=== PATIENT | male | born 1955 | race African-American/Black ===

== ENCOUNTER 2024-01-01 17:12 | Inpatient (IN) | payer MEDICARE ==
[~2024-01-01] VITALS: Ht 195.6 cm; Wt 109.3 kg
[2024-01-01] MEDS ORDERED: methylPREDNISolone SOD SUCC 125 MG/2ML VIAL ONE (17:46)
[2024-01-01] MEDS: methylPREDNISolone SOD SUCC 125 MG/2ML VIAL IV ONE (17:51)
[2024-01-01 18:09] LABS: ABG BASE EXCESS 1.9 mmol/L (-2.0-3.0); ABG PCO2 38.3 mmHg (35.0-48.0); ABG PH 7.447 (7.350-7.450); ABG PO2 74.9 mmHg (83.0-108.0); ABG TOTAL HEMOGLOBIN 14.1 G/dL (13.5-17.5); COHb 2.3 % (0.5-1.5); MetHb 0.2 % (0.0-1.5); O2Hb 92.6 % (94.0-97.0); SITE, ABG Left Radial; VENT MODE, BG SIMPLE MSK
[2024-01-01 18:13] LABS: BASOPHILS # (AUTO) 0.1 K/uL (0.0-0.2); BASOPHILS % (AUTO) 0.9 % (0.0-2.0); EOSINOPHILS # (AUTO) 0.1 K/uL (0.0-0.7); EOSINOPHILS % (AUTO) 0.8 % (0.0-6.0); HEMATOCRIT 41 % (39-51); HEMOGLOBIN 13.3 g/dL (13.5-17.5); LYMPHOCYTES # (AUTO) 1.4 K/uL (0.8-4.8); LYMPHOCYTES % (AUTO) 18.6 % (20.0-44.0); MEAN CORPUSCULAR HEMOGLOBIN 30 PG (26.0-33.0); MEAN CORPUSCULAR HGB CONC 33 g/dl (31.0-36.0); MEAN CORPUSCULAR VOLUME 92 fL (80-96); MONOCYTES # (AUTO) 0.4 K/uL (0.1-1.30); MONOCYTES % (AUTO) 5.2 % (2.0-12.0); NEUTROPHILS # (AUTO) 5.8 K/uL (1.8-8.9); NEUTROPHILS % (AUTO) 74.5 % (43.0-81.0); PLATELET COUNT (AUTO) 307 K/uL (150-450); RED BLOOD CELL COUNT(AUTO) 4.43 MIL/uL (4.5-6.0); RED CELL DISTRIBUTION WIDTH 14.4 % (11.5-15.0); WHITE BLOOD COUNT (AUTO) 7.7 K/uL (4.3-11.0)
[2024-01-01 18:25] LABS: CALCIUM, SERUM 8.8 mg/dL (8.5-10.1); CARBON DIOXIDE 27 mmol/L (21-32); CHLORIDE 103 mmol/L (98-107); CREATININE 1.1 mg/dL (0.6-1.3); GLUCOSE 216 mg/dL (74-106); POTASSIUM 3.9 mmol/L (3.5-5.1); SODIUM SERUM 135 mmol/L (136-145); UREA NITROGEN, BLOOD 8 mg/dL (7-18)
[2024-01-01] MEDS ORDERED: FAMO20TA80 PO (18:29)
[2024-01-01] MEDS ORDERED: CETI-90 PO (18:29)
[2024-01-01] MEDS ORDERED: GLIM2TAB31 PO (18:29)
[2024-01-01 18:36] LABS: NT-PRO BNP 5243 pg/mL (0-125)
[2024-01-01 18:37] LABS: PROTHROMBIN TIME 10.6 SECS (9.2-11.1)
[2024-01-01 18:38] LABS: INR 1.03 (0.91-1.10); PARTIAL THROMBOPLASTIN TIME 27.2 SEC (24.3-34.3)
[2024-01-01] MEDS: FUROSEMIDE 40 MG/4 ML VIAL IV ONE (18:48)
[2024-01-01] MEDS ORDERED: FUROSEMIDE 40 MG/4 ML VIAL ONE (18:48)
[2024-01-01] MEDS ORDERED: MAGNESIUM HYDROXIDE 30 ML UDC PO PRN (20:00)
[2024-01-01] MEDS ORDERED: Z GUARD REMEDY 4 OZ OINT TP PRN (20:00)
[2024-01-01] MEDS ORDERED: MAG HYDROX/AL HYDROX/SIMETH 30 ML UDC PO PRN (20:00)
[2024-01-01] MEDS ORDERED: ALBUTEROL FS 2.5 MG/3 ML VIAL.NEB NEB PRN (20:00)
[2024-01-01] MEDS ORDERED: ONDANSETRON HCL/PF 4 MG/2 ML VIAL IVP PRN (20:00)
[2024-01-01] MEDS: ENOXAPARIN SODIUM 40 MG/0.4 ML DISP.SYRIN SQ SCH (21:59)
[2024-01-01] MEDS ORDERED: ZOLPIDEM TARTRATE 5 MG TABLET PO PRN (22:00)
[2024-01-02] VITALS: BP 148/95; TEMP 98.2; O2SAT 96
[2024-01-02 04:00] VITALS: BP 148/97; TEMP 98; O2SAT 95
[2024-01-02 06:45] LABS: BASOPHILS % (AUTO) 0.1 % (0.0-2.0); HEMATOCRIT 40 % (39-51); HEMOGLOBIN 13.4 g/dL (13.5-17.5); LYMPHOCYTES # (AUTO) 0.8 K/uL (0.8-4.8); LYMPHOCYTES % (AUTO) 10.5 % (20.0-44.0); MEAN CORPUSCULAR HEMOGLOBIN 30 PG (26.0-33.0); MEAN CORPUSCULAR HGB CONC 34 g/dl (31.0-36.0); MEAN CORPUSCULAR VOLUME 90 fL (80-96); MONOCYTES # (AUTO) 0.1 K/uL (0.1-1.30); MONOCYTES % (AUTO) 0.8 % (2.0-12.0); NEUTROPHILS # (AUTO) 7.1 K/uL (1.8-8.9); NEUTROPHILS % (AUTO) 88.6 % (43.0-81.0); PLATELET COUNT (AUTO) 320 K/uL (150-450); RED BLOOD CELL COUNT(AUTO) 4.43 MIL/uL (4.5-6.0); RED CELL DISTRIBUTION WIDTH 14.5 % (11.5-15.0); WHITE BLOOD COUNT (AUTO) 8.1 K/uL (4.3-11.0)
[2024-01-02 06:50] LABS: ALBUMIN 2.7 g/dL (3.4-5.0); BILIRUBIN,DIRECT 0.1 mg/dL (0.0-0.2); BILIRUBIN,TOTAL 0.5 mg/dL (0.2-1.0); CALCIUM, SERUM 8.9 mg/dL (8.5-10.1); CREATININE 1.3 mg/dL (0.6-1.3); PHOSPHORUS 4.2 mg/dL (2.5-4.9); POTASSIUM 4.3 mmol/L (3.5-5.1); TOTAL PROTEIN, SERUM 6.8 g/dL (6.4-8.2)
[2024-01-02] MEDS: PANTOPRAZOLE 40 MG TABLET.DR PO SCH (07:41)
[2024-01-02 08:00] VITALS: BP 147/108; TEMP 98.5; O2SAT 95
[2024-01-02] MEDS: FUROSEMIDE 20 MG/2 ML VIAL IV SCH ×2 (09:13→16:28)
[2024-01-02] MEDS: NITROGLYCERIN 30 GM TUBE TP PRN (11:32)
[2024-01-02] MEDS: ACETAMINOPHEN 325 MG TABLET PO PRN (11:38)
[2024-01-02] MEDS: ASPIRIN 81 MG TAB.CHEW PO STA (11:57)
[2024-01-02 12:00] VITALS: BP 150/104; TEMP 98.5; O2SAT 92
[2024-01-02] MEDS: NITROGLYCERIN 0.4 MG/TAB BOTTLE SL PRN (12:31)
[2024-01-02] MEDS: ENOXAPARIN SODIUM 100 MG/ML DISP.SYRIN SQ SCH (12:34)
[2024-01-02 16:00] VITALS: BP 117/76; TEMP 98.1; O2SAT 97
[2024-01-02 20:00] VITALS: BP 105/67; TEMP 98.1; O2SAT 98
[2024-01-03] VITALS: BP 142/86; TEMP 97.9; O2SAT 99
[2024-01-03 04:00] VITALS: BP 129/86; TEMP 98.4; O2SAT 100
[2024-01-03 06:58] LABS: BASOPHILS # (AUTO) 0.1 K/uL (0.0-0.2); BASOPHILS % (AUTO) 0.6 % (0.0-2.0); EOSINOPHILS # (AUTO) 0.2 K/uL (0.0-0.7); EOSINOPHILS % (AUTO) 1.6 % (0.0-6.0); HEMATOCRIT 42 % (39-51); HEMOGLOBIN 13.5 g/dL (13.5-17.5); LYMPHOCYTES # (AUTO) 2.4 K/uL (0.8-4.8); LYMPHOCYTES % (AUTO) 20.6 % (20.0-44.0); MEAN CORPUSCULAR HEMOGLOBIN 29 PG (26.0-33.0); MEAN CORPUSCULAR HGB CONC 32 g/dl (31.0-36.0); MEAN CORPUSCULAR VOLUME 91 fL (80-96); MONOCYTES # (AUTO) 0.6 K/uL (0.1-1.30); MONOCYTES % (AUTO) 5.4 % (2.0-12.0); NEUTROPHILS # (AUTO) 8.3 K/uL (1.8-8.9); NEUTROPHILS % (AUTO) 71.8 % (43.0-81.0); PLATELET COUNT (AUTO) 336 K/uL (150-450); RED BLOOD CELL COUNT(AUTO) 4.68 MIL/uL (4.5-6.0); RED CELL DISTRIBUTION WIDTH 14.9 % (11.5-15.0); WHITE BLOOD COUNT (AUTO) 11.6 K/uL (4.3-11.0)
[2024-01-03 07:32] LABS: CALCIUM, SERUM 9.3 mg/dL (8.5-10.1); CREATININE 1.4 mg/dL (0.6-1.3); POTASSIUM 4.1 mmol/L (3.5-5.1)
[2024-01-03 08:00] VITALS: BP 129/98; TEMP 97.5; O2SAT 97
[2024-01-03] MEDS: ASPIRIN 81 MG TAB.CHEW PO SCH (08:15)
[2024-01-03 12:00] VITALS: BP 123/89; TEMP 97.9; O2SAT 97
[2024-01-03 16:00] VITALS: BP 120/79; TEMP 98.1; O2SAT 98
[2024-01-03 16:04] LABS: APPEARANCE,URINE CLEAR (CLEAR); BILIRUBIN,URINE NEGATIVE (NEGATIVE); BLOOD, URINE NEGATIVE Ery/uL (NEGATIVE); COLOR,URINE OTHER (YELLOW); KETONES,URINE NEGATIVE (NEGATIVE); LEUKOCYTE ESTERASE ,URINE NEGATIVE (NEGATIVE); NITRITE, URINE NEGATIVE (NEGATIVE); PROTEIN,URINE NEGATIVE (NEGATIVE); UGLUCOSE NEGATIVE (NEGATIVE); UROBILINOGEN,URINE 0.2 EU/dL (0.2)
[2024-01-03 16:12] LABS: CREATININE, URINE 20.6 MG/DL (30.0-125.0); URINE SODIUM, RANDOM 64 mmol/l (40-220)
[2024-01-03 16:26] LABS: URINE TOTAL PROTEIN < 6.0 mg/dL (0-11.9)
[2024-01-03 17:03] LABS: EOSINOPHIL,URINE None Seen
[2024-01-03 20:00] VITALS: BP 124/84; TEMP 98.4; O2SAT 97
[2024-01-04] VITALS: BP 130/82; TEMP 98.2; O2SAT 98
[2024-01-04 04:00] VITALS: BP 130/94; TEMP 97.5; O2SAT 99
[2024-01-04 08:00] VITALS: BP 138/93; TEMP 97.5; O2SAT 95
[2024-01-04] MEDS ORDERED: FAMOTIDINE (20 MG) 20 MG TABLET PO SCH (09:00)
[2024-01-04 09:25] LABS: BASOPHILS % (AUTO) 0.3 % (0.0-2.0); EOSINOPHILS # (AUTO) 0.3 K/uL (0.0-0.7); EOSINOPHILS % (AUTO) 3.3 % (0.0-6.0); HEMATOCRIT 41 % (39-51); HEMOGLOBIN 13.4 g/dL (13.5-17.5); LYMPHOCYTES # (AUTO) 2.5 K/uL (0.8-4.8); LYMPHOCYTES % (AUTO) 28.2 % (20.0-44.0); MEAN CORPUSCULAR HEMOGLOBIN 30 PG (26.0-33.0); MEAN CORPUSCULAR HGB CONC 33 g/dl (31.0-36.0); MEAN CORPUSCULAR VOLUME 90 fL (80-96); MONOCYTES # (AUTO) 0.6 K/uL (0.1-1.30); MONOCYTES % (AUTO) 7.2 % (2.0-12.0); NEUTROPHILS # (AUTO) 5.4 K/uL (1.8-8.9); PLATELET COUNT (AUTO) 302 K/uL (150-450); RED BLOOD CELL COUNT(AUTO) 4.52 MIL/uL (4.5-6.0); RED CELL DISTRIBUTION WIDTH 14.7 % (11.5-15.0); WHITE BLOOD COUNT (AUTO) 8.9 K/uL (4.3-11.0)
[2024-01-04 09:46] LABS: CALCIUM, SERUM 9.2 mg/dL (8.5-10.1); CREATININE 1.2 mg/dL (0.6-1.3); POTASSIUM 3.8 mmol/L (3.5-5.1)
[2024-01-04 12:00] VITALS: BP 124/81; TEMP 98.1; O2SAT 95
== END 2024-01-04 16:00 | disposition left against medical advice (07) | DRG 280 ==
LOC: ER 17:15 → TELE-TD 19:04 → TELE1 01-04 14:25
PROVIDERS: ADMIT Nurse Practitioner Family; ATTEND Nurse Practitioner Acute Care
DX: I11.0 Hypertensive heart disease with heart failure (principal); G93.41 Metabolic encephalopathy; I21.A1 Myocardial infarction type 2; I50.33 Acute on chronic diastolic (congestive) heart failure; J96.01 Acute respiratory failure with hypoxia; E87.1 Hypo-osmolality and hyponatremia; N17.9 Acute kidney failure, unspecified; J90 Pleural effusion, not elsewhere classified; K21.9 Gastro-esophageal reflux disease without esophagitis; D64.9 Anemia, unspecified; E11.9 Type 2 diabetes mellitus without complications; E66.3 Overweight; E78.5 Hyperlipidemia, unspecified; I48.91 Unspecified atrial fibrillation; Z20.822 Contact with and (suspected) exposure to COVID-19; M89.8X9 Other specified disorders of bone, unspecified site; Z79.84 Long term (current) use of oral hypoglycemic drugs; Z68.28 Body mass index [BMI] 28.0-28.9, adult; I25.10 Atherosclerotic heart disease of native coronary artery without angina pectoris; Z87.891 Personal history of nicotine dependence
CPT/HCPCS: 36415; 70450-TC; 71045-TC; 80048-TC; 80061-TC; 80076-TC; 82570-TC; 83605-TC; 83735-TC; 83880; 84100-TC; 84300-TC; 84484-TC; 85025-TC; 85730-TC; 87040-TC; 93307-TC; 94799-TC; G0378; J1650; J1940; J2919

== ENCOUNTER 2024-01-09 21:10 | Inpatient (IN) | payer MEDICARE ==
[~2024-01-09] VITALS: Ht 195.6 cm; Wt 97.5 kg
[~2024-01-09 21:10] MED LIST: CETI-90 PO; FAMO20TA80 PO; GLIM2TAB31 PO
[2024-01-09] MEDS ORDERED: NITROGLYCERIN 0.4 MG/TAB BOTTLE ONE (21:23)
[2024-01-09 21:26] VITALS: O2SAT 100
[2024-01-09] MEDS: ALBUTEROL FS 2.5 MG/3 ML VIAL.NEB NEB ONE (21:26)
[2024-01-09] MEDS ORDERED: ALBUTEROL FS 2.5 MG/3 ML VIAL.NEB ONE (21:28)
[2024-01-09] MEDS: NITROGLYCERIN 0.4 MG/TAB BOTTLE SL ONE (21:29)
[2024-01-09 21:46] VITALS: O2SAT 98
[2024-01-09] MEDS ORDERED: methylPREDNISolone SOD SUCC 125 MG/2ML VIAL ONE (21:57)
[2024-01-09] MEDS: methylPREDNISolone SOD SUCC 125 MG/2ML VIAL IV ONE (21:59)
[2024-01-09 22:14] LABS: BASOPHILS % (AUTO) 0.2 % (0.0-2.0); EOSINOPHILS # (AUTO) 0.1 K/uL (0.0-0.7); HEMATOCRIT 40 % (39-51); HEMOGLOBIN 13.1 g/dL (13.5-17.5); LYMPHOCYTES # (AUTO) 1.3 K/uL (0.8-4.8); LYMPHOCYTES % (AUTO) 18.8 % (20.0-44.0); MEAN CORPUSCULAR HEMOGLOBIN 30 PG (26.0-33.0); MEAN CORPUSCULAR HGB CONC 33 g/dl (31.0-36.0); MEAN CORPUSCULAR VOLUME 91 fL (80-96); MONOCYTES # (AUTO) 0.3 K/uL (0.1-1.30); MONOCYTES % (AUTO) 4.4 % (2.0-12.0); NEUTROPHILS # (AUTO) 5.1 K/uL (1.8-8.9); NEUTROPHILS % (AUTO) 75.6 % (43.0-81.0); PLATELET COUNT (AUTO) 323 K/uL (150-450); RED BLOOD CELL COUNT(AUTO) 4.34 MIL/uL (4.5-6.0); RED CELL DISTRIBUTION WIDTH 14.3 % (11.5-15.0); WHITE BLOOD COUNT (AUTO) 6.8 K/uL (4.3-11.0)
[2024-01-09 22:23] LABS: CARBON DIOXIDE 26 mmol/L (21-32); CHLORIDE 103 mmol/L (98-107); CREATININE 1.3 mg/dL (0.6-1.3); GLUCOSE 207 mg/dL (74-106); POTASSIUM 3.7 mmol/L (3.5-5.1); SODIUM SERUM 135 mmol/L (136-145); UREA NITROGEN, BLOOD 10 mg/dL (7-18)
[2024-01-09 22:32] LABS: LACTIC ACID 1.2 mmol/L (0.4-2.0)
[2024-01-09 22:34] LABS: INR 1.03 (0.91-1.10); PARTIAL THROMBOPLASTIN TIME 26.7 SEC (24.3-34.3); PROTHROMBIN TIME 10.6 SECS (9.2-11.1)
[2024-01-09 22:36] LABS: ALANINE AMINOTRANSFERASE 25 U/L (12-78); ALBUMIN 2.9 g/dL (3.4-5.0); ALKALINE PHOSPHATASE 84 U/L (46-116); ASPARTATE AMINOTRANSFERASE 18 U/L (15-37); BILIRUBIN,DIRECT 0.1 mg/dL (0.0-0.2); BILIRUBIN,TOTAL 0.4 mg/dL (0.2-1.0); NT-PRO BNP 4877 pg/mL (0-125); TOTAL PROTEIN, SERUM 6.8 g/dL (6.4-8.2)
[2024-01-09] MEDS ORDERED: ASPIRIN 325 MG TABLET ONE (22:57)
[2024-01-09] MEDS: ASPIRIN 325 MG TABLET PO ONE (22:58)
[2024-01-10] VITALS (10 sets, daily range): BP systolic 131–151; BP diastolic 92–97; TEMP 97.5–98.1; O2SAT 92–98
[2024-01-10] MEDS ORDERED: DEXTROSE 50%-WATER 50 ML DISP.SYRIN IV PRN (00:30)
[2024-01-10] MEDS ORDERED: Z GUARD REMEDY 4 OZ OINT TP PRN (00:30)
[2024-01-10] MEDS ORDERED: ALBUTEROL FS 2.5 MG/0.5 ML VIAL.NEB NEB PRN (00:30)
[2024-01-10] MEDS ORDERED: MAGNESIUM HYDROXIDE 30 ML UDC PO PRN (00:30)
[2024-01-10] MEDS ORDERED: MAG HYDROX/AL HYDROX/SIMETH 30 ML UDC PO PRN (00:30)
[2024-01-10] MEDS ORDERED: ONDANSETRON HCL/PF 4 MG/2 ML VIAL IVP PRN (00:30)
[2024-01-10] MEDS ORDERED: ENOXAPARIN SODIUM 40 MG/0.4 ML DISP.SYRIN SQ ONE (02:44)
[2024-01-10] MEDS: BLOOD SUGAR DIAGNOSTIC 1 EACH STRIP IN SCH (07:55)
[2024-01-10] MEDS: INSULIN REGULAR, HUMAN 100 UNIT/ML 3 ML VIAL SQ PRN (07:56)
[2024-01-10] MEDS: cetrizine 10 MG TABLET PO SCH (09:07)
[2024-01-10] MEDS: ASPIRIN 81 MG TAB.CHEW PO SCH (09:07)
[2024-01-10] MEDS: FUROSEMIDE 40 MG/4 ML VIAL IV SCH (09:08)
[2024-01-10] MEDS: methylPREDNISolone SOD SUCC 125 MG/2ML VIAL IV SCH (12:57)
[2024-01-10] MEDS: IPRATROPIUM NEB FS 0.5 MG/2.5 ML AMPUL.NEB NEB SCH (13:30)
[2024-01-10] MEDS: ALBUTEROL FS 2.5 MG/0.5 ML VIAL.NEB NEB SCH (13:30)
[2024-01-10] MEDS: ENOXAPARIN SODIUM 40 MG/0.4 ML DISP.SYRIN SQ SCH (21:43)
[2024-01-11] VITALS (14 sets, daily range): BP systolic 133–150; BP diastolic 82–104; TEMP 97.5–98.1; O2SAT 92–100
[2024-01-11 06:30] LABS: BASOPHILS # (AUTO) 0.1 K/uL (0.0-0.2); BASOPHILS % (AUTO) 0.6 % (0.0-2.0); HEMATOCRIT 41 % (39-51); HEMOGLOBIN 13.5 g/dL (13.5-17.5); LYMPHOCYTES # (AUTO) 1.6 K/uL (0.8-4.8); LYMPHOCYTES % (AUTO) 16.6 % (20.0-44.0); MEAN CORPUSCULAR HEMOGLOBIN 30 PG (26.0-33.0); MEAN CORPUSCULAR HGB CONC 33 g/dl (31.0-36.0); MEAN CORPUSCULAR VOLUME 91 fL (80-96); MONOCYTES # (AUTO) 0.5 K/uL (0.1-1.30); MONOCYTES % (AUTO) 5.4 % (2.0-12.0); NEUTROPHILS # (AUTO) 7.7 K/uL (1.8-8.9); NEUTROPHILS % (AUTO) 77.4 % (43.0-81.0); PLATELET COUNT (AUTO) 297 K/uL (150-450); RED BLOOD CELL COUNT(AUTO) 4.53 MIL/uL (4.5-6.0); RED CELL DISTRIBUTION WIDTH 14.7 % (11.5-15.0); WHITE BLOOD COUNT (AUTO) 9.9 K/uL (4.3-11.0)
[2024-01-11 07:04] LABS: CALCIUM, SERUM 9.7 mg/dL (8.5-10.1); CREATININE 1.3 mg/dL (0.6-1.3); PHOSPHORUS 4.4 mg/dL (2.5-4.9); POTASSIUM 4.2 mmol/L (3.5-5.1)
[2024-01-11] MEDS: POTASSIUM CHLORIDE 20 MEQ TAB.PRT.SR PO SCH (11:22)
[2024-01-11] MEDS: FUROSEMIDE 40 MG/4 ML VIAL IV SCH (11:22)
[2024-01-11] MEDS: NICOTINE PATCH (21MG) 21 MG PATCH.TD24 TD SCH (11:22)
[2024-01-12] VITALS (13 sets, daily range): BP systolic 122–148; BP diastolic 65–92; TEMP 97.4–98.3; O2SAT 93–100
[2024-01-12 07:51] LABS: BASOPHILS % (AUTO) 0.4 % (0.0-2.0); EOSINOPHILS % (AUTO) 0.3 % (0.0-6.0); HEMATOCRIT 41 % (39-51); HEMOGLOBIN 13.2 g/dL (13.5-17.5); LYMPHOCYTES # (AUTO) 2.1 K/uL (0.8-4.8); LYMPHOCYTES % (AUTO) 19.6 % (20.0-44.0); MEAN CORPUSCULAR HEMOGLOBIN 29 PG (26.0-33.0); MEAN CORPUSCULAR HGB CONC 32 g/dl (31.0-36.0); MEAN CORPUSCULAR VOLUME 91 fL (80-96); MONOCYTES # (AUTO) 0.6 K/uL (0.1-1.30); MONOCYTES % (AUTO) 5.5 % (2.0-12.0); NEUTROPHILS % (AUTO) 74.2 % (43.0-81.0); PLATELET COUNT (AUTO) 299 K/uL (150-450); RED BLOOD CELL COUNT(AUTO) 4.53 MIL/uL (4.5-6.0); RED CELL DISTRIBUTION WIDTH 14.7 % (11.5-15.0); WHITE BLOOD COUNT (AUTO) 10.8 K/uL (4.3-11.0)
[2024-01-12 08:27] LABS: ALBUMIN 2.9 g/dL (3.4-5.0); BILIRUBIN,TOTAL 0.3 mg/dL (0.2-1.0); CALCIUM, SERUM 9.2 mg/dL (8.5-10.1); CREATININE 1.3 mg/dL (0.6-1.3); MAGNESIUM 2.4 mg/dL (1.8-2.4); PHOSPHORUS 4.1 mg/dL (2.5-4.9); TOTAL PROTEIN, SERUM 6.8 g/dL (6.4-8.2)
[2024-01-13] VITALS (16 sets, daily range): BP systolic 125–158; BP diastolic 85–102; TEMP 97.4–98.4; O2SAT 92–99
[2024-01-13] MEDS: FUROSEMIDE 40 MG/4 ML VIAL IV SCH (08:40)
[2024-01-13] MEDS: methylPREDNISolone SOD SUCC 125 MG/2ML VIAL IV SCH (08:41)
[2024-01-13] MEDS: POTASSIUM CHLORIDE 20 MEQ TAB.PRT.SR PO SCH (08:43)
[2024-01-14] VITALS (16 sets, daily range): BP systolic 131–166; BP diastolic 84–98; TEMP 97.9–98.4; O2SAT 97–100
[2024-01-14 06:48] LABS: BASOPHILS % (AUTO) 0.5 % (0.0-2.0); EOSINOPHILS # (AUTO) 0.1 K/uL (0.0-0.7); EOSINOPHILS % (AUTO) 1.2 % (0.0-6.0); HEMATOCRIT 42 % (39-51); HEMOGLOBIN 13.6 g/dL (13.5-17.5); LYMPHOCYTES # (AUTO) 2.8 K/uL (0.8-4.8); LYMPHOCYTES % (AUTO) 28.8 % (20.0-44.0); MEAN CORPUSCULAR HEMOGLOBIN 30 PG (26.0-33.0); MEAN CORPUSCULAR HGB CONC 33 g/dl (31.0-36.0); MEAN CORPUSCULAR VOLUME 92 fL (80-96); MONOCYTES # (AUTO) 0.7 K/uL (0.1-1.30); NEUTROPHILS # (AUTO) 6.2 K/uL (1.8-8.9); NEUTROPHILS % (AUTO) 62.5 % (43.0-81.0); PLATELET COUNT (AUTO) 274 K/uL (150-450); RED BLOOD CELL COUNT(AUTO) 4.55 MIL/uL (4.5-6.0); RED CELL DISTRIBUTION WIDTH 14.4 % (11.5-15.0); WHITE BLOOD COUNT (AUTO) 9.9 K/uL (4.3-11.0)
[2024-01-14 07:38] LABS: ALBUMIN 2.6 g/dL (3.4-5.0); BILIRUBIN,TOTAL 0.3 mg/dL (0.2-1.0); CALCIUM, SERUM 8.6 mg/dL (8.5-10.1); CREATININE 1.2 mg/dL (0.6-1.3); MAGNESIUM 2.3 mg/dL (1.8-2.4); POTASSIUM 3.8 mmol/L (3.5-5.1); TOTAL PROTEIN, SERUM 6.3 g/dL (6.4-8.2)
[2024-01-14] MEDS: ACETAMINOPHEN 325 MG TABLET PO PRN (17:21)
[2024-01-14] MEDS: INSULIN GLARGINE, 100 UNIT/ML CARTRIDGE SQ SCH (21:50)
[2024-01-15] VITALS (12 sets, daily range): BP systolic 97–136; BP diastolic 74–89; TEMP 97.8–98.4; O2SAT 91–100
[2024-01-15 08:36] LABS: BASOPHILS % (AUTO) 0.3 % (0.0-2.0); EOSINOPHILS # (AUTO) 0.1 K/uL (0.0-0.7); HEMATOCRIT 45 % (39-51); HEMOGLOBIN 14.4 g/dL (13.5-17.5); LYMPHOCYTES # (AUTO) 3.7 K/uL (0.8-4.8); MEAN CORPUSCULAR HEMOGLOBIN 29 PG (26.0-33.0); MEAN CORPUSCULAR HGB CONC 32 g/dl (31.0-36.0); MEAN CORPUSCULAR VOLUME 91 fL (80-96); MONOCYTES # (AUTO) 0.6 K/uL (0.1-1.30); MONOCYTES % (AUTO) 5.7 % (2.0-12.0); NEUTROPHILS # (AUTO) 6.9 K/uL (1.8-8.9); PLATELET COUNT (AUTO) 258 K/uL (150-450); RED CELL DISTRIBUTION WIDTH 14.9 % (11.5-15.0); WHITE BLOOD COUNT (AUTO) 11.4 K/uL (4.3-11.0)
[2024-01-15 08:53] LABS: CALCIUM, SERUM 9.4 mg/dL (8.5-10.1); CREATININE 1.1 mg/dL (0.6-1.3); MAGNESIUM 2.3 mg/dL (1.8-2.4); PHOSPHORUS 3.6 mg/dL (2.5-4.9); POTASSIUM 3.6 mmol/L (3.5-5.1)
[2024-01-16] VITALS (12 sets, daily range): BP systolic 118–151; BP diastolic 67–98; TEMP 97.5–98.2; O2SAT 94–99
[2024-01-16] MEDS ORDERED: IV NS 0.9% 500 ML IV ONE (07:50)
[2024-01-16] MEDS ORDERED: IV SET PRIMARY PUMP SET 1 EA INFUS.SET MC ONE (07:50)
[2024-01-16] MEDS ORDERED: IODIXANOL 150 ML IV ONE (07:51)
[2024-01-16] MEDS ORDERED: LIDOCAINE HCL/MPF 1% 30 ML VIAL IJ ONE (07:51)
[2024-01-16] MEDS ORDERED: NITROGLYCERIN IN 5 % DEXTROSE 250 ML IV ONE (07:52)
[2024-01-16 07:55] LABS: BASOPHILS # (AUTO) 0.1 K/uL (0.0-0.2); BASOPHILS % (AUTO) 0.5 % (0.0-2.0); EOSINOPHILS % (AUTO) 0.2 % (0.0-6.0); HEMATOCRIT 44 % (39-51); HEMOGLOBIN 14.3 g/dL (13.5-17.5); LYMPHOCYTES % (AUTO) 25.5 % (20.0-44.0); MEAN CORPUSCULAR HEMOGLOBIN 30 PG (26.0-33.0); MEAN CORPUSCULAR HGB CONC 32 g/dl (31.0-36.0); MEAN CORPUSCULAR VOLUME 91 fL (80-96); MONOCYTES # (AUTO) 0.7 K/uL (0.1-1.30); MONOCYTES % (AUTO) 5.7 % (2.0-12.0); NEUTROPHILS % (AUTO) 68.1 % (43.0-81.0); PLATELET COUNT (AUTO) 261 K/uL (150-450); RED BLOOD CELL COUNT(AUTO) 4.83 MIL/uL (4.5-6.0); RED CELL DISTRIBUTION WIDTH 14.9 % (11.5-15.0); WHITE BLOOD COUNT (AUTO) 11.8 K/uL (4.3-11.0)
[2024-01-16 07:56] LABS: CALCIUM, SERUM 9.8 mg/dL (8.5-10.1); CREATININE 1.1 mg/dL (0.6-1.3)
[2024-01-16 08:00] LABS: INR 1.03 (0.91-1.10); PROTHROMBIN TIME 10.9 SECS (9.2-11.1)
[2024-01-16] MEDS ORDERED: FENTANYL PF 100MCG/2ML AMPUL ONE (09:18)
[2024-01-16] MEDS ORDERED: MIDAZOLAM HCL 2 MG/2ML VIAL ONE (09:19)
[2024-01-17] VITALS: BP 102/76; TEMP 97.9; O2SAT 99
[2024-01-17 04:00] VITALS: BP 134/87; TEMP 97.5; O2SAT 100
[2024-01-17 07:40] VITALS: O2SAT 98
[2024-01-17] MEDS ORDERED: METOPROLOL SUCCINATE 50 MG TAB.SR.24H PO SCH (08:30)
[2024-01-17] MEDS ORDERED: ATORVASTATIN 40 MG TABLET PO SCH (09:00)
== END 2024-01-17 11:29 | disposition left against medical advice (07) | DRG 280 ==
LOC: ER 21:16 → TELE1 01-10 02:07
PROVIDERS: ADMIT Nurse Practitioner Acute Care; ATTEND Nurse Practitioner Family
PROC: 4A023N7 Measurement of Cardiac Sampling and Pressure, Left Heart, Percutaneous Approach (ICD-10-PCS; principal; 2024-01-09)
PROC: B211YZZ Fluoroscopy of Multiple Coronary Arteries using Other Contrast (ICD-10-PCS; 2024-01-16)
DX: I11.0 Hypertensive heart disease with heart failure (principal); I50.33 Acute on chronic diastolic (congestive) heart failure; I21.A1 Myocardial infarction type 2; J96.01 Acute respiratory failure with hypoxia; J44.1 Chronic obstructive pulmonary disease with (acute) exacerbation; E44.0 Moderate protein-calorie malnutrition; E87.1 Hypo-osmolality and hyponatremia; J90 Pleural effusion, not elsewhere classified; E11.9 Type 2 diabetes mellitus without complications; E88.09 Other disorders of plasma-protein metabolism, not elsewhere classified; I25.10 Atherosclerotic heart disease of native coronary artery without angina pectoris; I25.2 Old myocardial infarction; I42.9 Cardiomyopathy, unspecified; Z95.1 Presence of aortocoronary bypass graft; Z79.84 Long term (current) use of oral hypoglycemic drugs; Z20.822 Contact with and (suspected) exposure to COVID-19; J43.2 Centrilobular emphysema; G47.33 Obstructive sleep apnea (adult) (pediatric); Z53.29 Procedure and treatment not carried out because of patient's decision for other reasons; Z91.199 Patient's noncompliance with other medical treatment and regimen due to unspecified reason; F17.210 Nicotine dependence, cigarettes, uncomplicated; Z68.25 Body mass index [BMI] 25.0-25.9, adult
CPT/HCPCS: 36415; 71045-TC; 80048-TC; 80053-TC; 80076-TC; 82962-TC; 83605-TC; 83735-TC; 83880; 84100-TC; 84484-TC; 85025-TC; 85610-TC; 85730-TC; 87040-TC; 93307-TC; 94760-TC; 94761-TC; 94762-TC; 94799-TC; A4223; G0378; J1644; J1650; J1815; J1940; J2250; J2919; J3010; J3490; J7040; J7050; Q9967

== ENCOUNTER 2024-01-23 07:08 | Emergency (ER) | payer MEDICARE, BC ==
[~2024-01-23] VITALS: Ht 177.8 cm; Wt 81.6 kg
[2024-01-23] MEDS ORDERED: FUROSEMIDE 40 MG/4 ML VIAL ONE (07:51)
[2024-01-23] MEDS: FUROSEMIDE 40 MG/4 ML VIAL IV ONE (07:55)
[2024-01-23 08:02] LABS: BASOPHILS # (AUTO) 0.1 K/uL (0.0-0.2); EOSINOPHILS # (AUTO) 0.2 K/uL (0.0-0.7); EOSINOPHILS % (AUTO) 2.3 % (0.0-6.0); HEMATOCRIT 40 % (39-51); HEMOGLOBIN 12.7 g/dL (13.5-17.5); LYMPHOCYTES # (AUTO) 1.5 K/uL (0.8-4.8); LYMPHOCYTES % (AUTO) 21.4 % (20.0-44.0); MEAN CORPUSCULAR HEMOGLOBIN 29 PG (26.0-33.0); MEAN CORPUSCULAR HGB CONC 32 g/dl (31.0-36.0); MEAN CORPUSCULAR VOLUME 92 fL (80-96); MONOCYTES # (AUTO) 0.3 K/uL (0.1-1.30); MONOCYTES % (AUTO) 4.4 % (2.0-12.0); NEUTROPHILS # (AUTO) 4.9 K/uL (1.8-8.9); NEUTROPHILS % (AUTO) 70.9 % (43.0-81.0); PLATELET COUNT (AUTO) 218 K/uL (150-450); RED CELL DISTRIBUTION WIDTH 14.6 % (11.5-15.0); WHITE BLOOD COUNT (AUTO) 6.9 K/uL (4.3-11.0)
[2024-01-23 08:10] LABS: CALCIUM, SERUM 8.9 mg/dL (8.5-10.1); CARBON DIOXIDE 28 mmol/L (21-32); CHLORIDE 106 mmol/L (98-107); CREATININE 1.2 mg/dL (0.6-1.3); GLUCOSE 162 mg/dL (74-106); SODIUM SERUM 140 mmol/L (136-145); UREA NITROGEN, BLOOD 8 mg/dL (7-18)
[2024-01-23 08:23] LABS: NT-PRO BNP 5462 pg/mL (0-125)
[2024-01-23 14:25] VITALS: BP 136/76; TEMP 98; O2SAT 97
== END 2024-01-23 14:15 | disposition left against medical advice (07) ==
LOC: ER 07:17
DX: I11.0 Hypertensive heart disease with heart failure (principal); I50.9 Heart failure, unspecified; R06.02 Shortness of breath; J81.1 Chronic pulmonary edema; D64.9 Anemia, unspecified; R73.9 Hyperglycemia, unspecified; E78.5 Hyperlipidemia, unspecified; I25.10 Atherosclerotic heart disease of native coronary artery without angina pectoris
CPT/HCPCS: 99285; 96374; 71045; 93005; 85025; 80048; 36415; 84484 ×2; 83880; J1940; J7030

== ENCOUNTER 2024-02-17 08:54 | Inpatient (IN) | payer MEDICARE, BC ==
[~2024-02-17] VITALS: Ht 190.5 cm; Wt 104.8 kg
[2024-02-17] VITALS (19 sets, daily range): BP systolic 108–167; BP diastolic 79–106; TEMP 98.5–98.7; O2SAT 91–96
[~2024-02-17 08:54] MED LIST changes: -GLIM2TAB31 PO
[2024-02-17] MEDS ORDERED: NITROGLYCERIN PACKET 1 GM PACKET ONE (09:01)
[2024-02-17] MEDS ORDERED: FUROSEMIDE 40 MG/4 ML VIAL ONE (09:06)
[2024-02-17] MEDS: FUROSEMIDE 40 MG/4 ML VIAL IV ONE (09:10)
[2024-02-17] MEDS: NITROGLYCERIN PACKET 1 GM PACKET TD ONE (09:15)
[2024-02-17 09:28] LABS: BASOPHILS % (AUTO) 0.7 % (0.0-2.0); EOSINOPHILS # (AUTO) 0.2 K/uL (0.0-0.7); EOSINOPHILS % (AUTO) 3.2 % (0.0-6.0); HEMATOCRIT 43 % (39-51); LYMPHOCYTES % (AUTO) 63.1 % (20.0-44.0); MEAN CORPUSCULAR HEMOGLOBIN 30 PG (26.0-33.0); MEAN CORPUSCULAR HGB CONC 33 g/dl (31.0-36.0); MEAN CORPUSCULAR VOLUME 90 fL (80-96); MONOCYTES # (AUTO) 0.3 K/uL (0.1-1.30); MONOCYTES % (AUTO) 5.4 % (2.0-12.0); NEUTROPHILS # (AUTO) 1.8 K/uL (1.8-8.9); NEUTROPHILS % (AUTO) 27.6 % (43.0-81.0); PLATELET COUNT (AUTO) 255 K/uL (150-450); RED BLOOD CELL COUNT(AUTO) 4.76 MIL/uL (4.5-6.0); WHITE BLOOD COUNT (AUTO) 6.4 K/uL (4.3-11.0)
[2024-02-17 09:35] LABS: ABG OXYGEN SATURATION 99.1 % (94.0-98.0); ABG PCO2 35.1 mmHg (35.0-48.0); ABG PH 7.397 (7.350-7.450); ABG PO2 174.1 mmHg (83.0-108.0); ABG TOTAL HEMOGLOBIN 13.9 G/dL (13.5-17.5); COHb 0.3 % (0.5-1.5); MetHb 0.3 % (0.0-1.5); O2Hb 98.5 % (94.0-97.0); SITE, ABG RIGHT RADIAL
[2024-02-17 09:45] LABS: LACTIC ACID 4.3 mmol/L (0.4-2.0)
[2024-02-17 09:46] LABS: INR 1.02 (0.91-1.10); PARTIAL THROMBOPLASTIN TIME 26.2 SEC (24.3-34.3); PROTHROMBIN TIME 10.8 SECS (9.2-11.1)
[2024-02-17 09:48] LABS: CALCIUM, SERUM 9.1 mg/dL (8.5-10.1); CARBON DIOXIDE 27 mmol/L (21-32); CHLORIDE 105 mmol/L (98-107); CREATININE 1.6 mg/dL (0.6-1.3); GLUCOSE 242 mg/dL (74-106); POTASSIUM 3.6 mmol/L (3.5-5.1); SODIUM SERUM 141 mmol/L (136-145); UREA NITROGEN, BLOOD 9 mg/dL (7-18)
[2024-02-17 09:49] LABS: EOSINOPHILS % (MANUAL) 3 % (0-4); LYMPHOCYTES % (MANUAL) 59 % (16-48); MONOCYTES % (MANUAL) 5 % (0-11.0); NEUTROPHILS % (MANUAL) 33 (42-76)
[2024-02-17 09:50] LABS: PLATELET ESTIMATE ADEQUATE
[2024-02-17 10:01] LABS: ALANINE AMINOTRANSFERASE 17 U/L (12-78); ALBUMIN 3.3 g/dL (3.4-5.0); ALKALINE PHOSPHATASE 109 U/L (46-116); ASPARTATE AMINOTRANSFERASE 12 U/L (15-37); BILIRUBIN,DIRECT 0.1 mg/dL (0.0-0.2); BILIRUBIN,TOTAL 0.4 mg/dL (0.2-1.0); NT-PRO BNP 4992 pg/mL (0-125); TOTAL PROTEIN, SERUM 7.4 g/dL (6.4-8.2)
[2024-02-17] MEDS ORDERED: OMEP20TA20 PO (10:07)
[2024-02-17] MEDS: ASPIRIN 325 MG TABLET PO ONE (12:18)
[2024-02-17 12:39] LABS: AMPHETAMINE, URINE NEGATIVE (NEGATIVE); BARBITURATE, URINE NEGATIVE (NEGATIVE); BENZODIAZEPINE, URINE NEGATIVE (NEGATIVE); CANNABINOID, URINE NEGATIVE (NEGATIVE); COCCAINE, URINE NEGATIVE (NEGATIVE); OPIATE, URINE NEGATIVE (NEGATIVE); PHENCYCLIDINE SCREEN,URINE NEGATIVE (NEGATIVE)
[2024-02-17] MEDS ORDERED: DEXTROSE 50%-WATER 50 ML DISP.SYRIN IV PRN (13:30)
[2024-02-17] MEDS: BUMETANIDE INJ 6 MG in IV NS 0.9% 36 ML IV ONE (13:48)
[2024-02-17] MEDS: BLOOD SUGAR DIAGNOSTIC 1 EACH STRIP IN SCH (17:33)
[2024-02-17] MEDS: INSULIN REGULAR, HUMAN 100 UNIT/ML 3 ML VIAL SQ PRN (17:33)
[2024-02-17] MEDS: LOSARTAN POTASSIUM 50 MG TABLET PO SCH (19:59)
[2024-02-17] MEDS: ATORVASTATIN 40 MG TABLET PO SCH (23:00)
[2024-02-18] VITALS (38 sets, daily range): BP systolic 115–158; BP diastolic 63–113; TEMP 97.5–98.6; O2SAT 94–100
[2024-02-18] MEDS: cetrizine 10 MG TABLET PO SCH (08:10)
[2024-02-18] MEDS: CLOPIDOGREL BISULFATE 75 MG TABLET PO SCH (08:10)
[2024-02-18] MEDS: PANTOPRAZOLE 40 MG TABLET.DR PO SCH (08:12)
[2024-02-18] MEDS: FUROSEMIDE 40 MG/4 ML VIAL IV SCH (09:46)
[2024-02-18 16:57] LABS: APPEARANCE,URINE CLEAR (CLEAR); BILIRUBIN,URINE NEGATIVE (NEGATIVE); BLOOD, URINE NEGATIVE Ery/uL (NEGATIVE); COLOR,URINE YELLOW (YELLOW); KETONES,URINE NEGATIVE (NEGATIVE); LEUKOCYTE ESTERASE ,URINE NEGATIVE (NEGATIVE); NITRITE, URINE NEGATIVE (NEGATIVE); PH,URINE 6.5 (5.0-8.0); PROTEIN,URINE NEGATIVE (NEGATIVE); UGLUCOSE NEGATIVE (NEGATIVE); UROBILINOGEN,URINE 0.2 EU/dL (0.2)
[2024-02-18 17:04] LABS: CREATININE, URINE 25.6 MG/DL (30.0-125.0); URINE SODIUM, RANDOM 87 mmol/l (40-220)
[2024-02-18 17:07] LABS: URINE TOTAL PROTEIN < 6.0 mg/dL (0-11.9)
[2024-02-19] VITALS: BP_SYST 135; BP_DIAS 68; BP_DIAS 99; TEMP 98; O2SAT 97; O2SAT 98
[2024-02-19 00:15] VITALS: O2SAT 98
[2024-02-19 00:30] VITALS: BP 140/95; O2SAT 99
[2024-02-19 00:45] VITALS: O2SAT 99
[2024-02-19 01:00] VITALS: BP 138/93; O2SAT 98
== END 2024-02-19 02:15 | disposition short-term general hospital (02) | DRG 280 ==
LOC: ER 08:57 → ICU 12:16
PROVIDERS: ADMIT Nurse Practitioner Acute Care; ATTEND Internal Medicine
PROC: 5A09357 Assistance with Respiratory Ventilation, Less than 24 Consecutive Hours, Continuous Positive Airway Pressure (ICD-10-PCS; principal; 2024-02-17)
DX: I11.0 Hypertensive heart disease with heart failure (principal); I50.43 Acute on chronic combined systolic (congestive) and diastolic (congestive) heart failure; I21.4 Non-ST elevation (NSTEMI) myocardial infarction; J96.01 Acute respiratory failure with hypoxia; N17.9 Acute kidney failure, unspecified; E87.20 Acidosis, unspecified; J44.1 Chronic obstructive pulmonary disease with (acute) exacerbation; I25.10 Atherosclerotic heart disease of native coronary artery without angina pectoris; E78.5 Hyperlipidemia, unspecified; Z98.61 Coronary angioplasty status; E11.9 Type 2 diabetes mellitus without complications; M89.8X9 Other specified disorders of bone, unspecified site; Z72.0 Tobacco use
CPT/HCPCS: 36415; 36600; 71045-TC; 80048-TC; 80076-TC; 82570-TC; 82803-TC; 82962-TC; 83605-TC; 83880; 84300-TC; 84484-TC; 85025-TC; 85730-TC; 87040-TC; 87081-TC; 93307-TC; 94660; 94799-TC; A4223; G0378; J1815; J1940; J3490; J7050